=== PATIENT | male | born 1960 ===

== ENCOUNTER 2020-03-07 14:35 | Inpatient (IN) | payer MEDICAID ==
[~2020-03-07] VITALS: Ht 172.7 cm; Wt 72.6 kg
[2020-03-07] MEDS ORDERED: IV NORMAL SALINE 1000 ML BAG IV ONE (15:00)
[2020-03-07] MEDS ORDERED: ATOR20TA PO (15:43)
[2020-03-07] MEDS ORDERED: SPIR25TA6 PO (15:43)
[2020-03-07] MEDS ORDERED: CLOM25CA4 PO (15:43)
[2020-03-07] MEDS ORDERED: LISI10TA5 PO (15:43)
[2020-03-07] MEDS ORDERED: TIOT18CA3 INH (15:43)
[2020-03-07] MEDS ORDERED: TRAZ-257 PO (15:43)
[2020-03-07] MEDS ORDERED: BUME2TAB8 PO (15:43)
[2020-03-07] MEDS ORDERED: INSU100V42 SQ (15:43)
--- NOTE | 2020-03-07 15:45 | NUR ---
patient presents to er by ambulance with chest pain no sob, no nausea vomiting, very weak vital stable will continue to monitor.
[2020-03-07 15:55] LABS: BASOPHILS # (AUTO) 0.1 K/uL (0.0-8.0); BASOPHILS % (AUTO) 0.5 % (0.0-2.0); EOSINOPHILS % (AUTO) 0.1 % (0.0-7.0); HEMATOCRIT 47.4 % (36.7-47.1); HEMOGLOBIN 15.9 g/dL (12.5-16.3); LYMPHOCYTES # (AUTO) 0.5 K/uL (20.0-40.0); LYMPHOCYTES % (AUTO) 3.8 % (20.5-51.5); MEAN CORPUSCULAR HEMOGLOBIN 30.8 uug (23.8-33.4); MEAN CORPUSCULAR HGB CONC 34 g/dL (32.5-36.3); MEAN CORPUSCULAR VOLUME 91.9 fL (73.0-96.2); MONOCYTES # (AUTO) 0.5 K/uL (2.0-10.0); MONOCYTES % (AUTO) 3.7 % (0.0-11.0); NEUTROPHILS # (AUTO) 12.9 K/uL (1.8-8.9); NEUTROPHILS % (AUTO) 91.9 % (38.5-71.5); PLATELET COUNT (AUTO) 172 K/uL (152-348); RED BLOOD CELL COUNT(AUTO) 5.16 MIL/uL (4.06-5.63); WHITE BLOOD COUNT (AUTO) 14.1 K/uL (3.6-10.2)
[2020-03-07 16:19] LABS: BILIRUBIN,DIRECT 0.4 mg/dL (0.0-0.2); BILIRUBIN,TOTAL 1.6 mg/dL (0.2-1.0); CREATININE 1.8 mg/dL (0.6-1.3); POTASSIUM 5.6 mmol/L (3.5-5.1); TOTAL PROTEIN, SERUM 6.4 g/dL (6.4-8.2)
[2020-03-07] MEDS ORDERED: INSULIN REGULAR, HUMAN 300 UNIT/3 ML VIAL SQ ONE (16:30)
[2020-03-07] MEDS ORDERED: FUROSEMIDE 40 MG/4 ML VIAL ONE (16:40)
[2020-03-07] MEDS ORDERED: INSULIN REGULAR, HUMAN 300 UNIT/3 ML VIAL ONE ×2 (16:41→22:46)
[2020-03-07] MEDS ORDERED: FUROSEMIDE 40 MG/4 ML VIAL IV ONE ×2 (16:45→17:00)
--- NOTE | 2020-03-07 16:46 | NUR ---
patient reassess no acute distress, no cp, no sob no nausea vomiting.
[2020-03-07] MEDS ORDERED: ONDANSETRON 4 MG/2 ML VIAL IV PRN (17:00)
[2020-03-07] MEDS ORDERED: DEXTROSE 50% 50 ML DISP.SYRIN IV PRN (17:00)
[2020-03-07] MEDS ORDERED: ACETAMINOPHEN 325 MG TABLET PO PRN (17:00)
[2020-03-07] MEDS ORDERED: HYDROCODONE/APAP 5-325MG TABLET PO PRN (17:00)
[2020-03-07] MEDS ORDERED: Z GUARD REMEDY PASTE 57 GM TUBE TOP PRN (17:00)
[2020-03-07] MEDS ORDERED: MAGNESIUM HYDROXIDE 30 ML LIQUID UDC PO PRN (17:00)
[2020-03-07] MEDS ORDERED: INSULIN REGULAR, HUMAN 300 UNIT/3 ML VIAL SQ PRN (17:00)
[2020-03-07] MEDS ORDERED: NITROGLYCERIN 0.4 MG/TAB BOTTLE SL PRN (17:15)
--- NOTE | 2020-03-07 19:16 | NUR ---
no tele bed available, patient denies cp, no sob, report endorsed to 7pm shift RN.
[2020-03-07] MEDS: BLOOD SUGAR DIAGNOSTIC 1 EACH STRIP VI SCH (21:00)
[2020-03-07] MEDS ORDERED: ATORVASTATIN 20 MG TABLET PO SCH (21:00)
[2020-03-07] MEDS ORDERED: TRAZODONE 100 MG TABLET PO SCH (21:00)
[2020-03-07] MEDS ORDERED: CEFTRIAXONE 1 G in IV DEXTROSE 5% 50 ML IV SCH (21:51)
[2020-03-07] MEDS: INSULIN REGULAR, HUMAN 300 UNITS/3 ML VIAL SQ PRN (23:22)
--- NOTE | 2020-03-08 00:12 | NUR ---
Call made to attending, DR BURGER in regards to low blood pressure. Updated on pt condition. See order history. Pt resting in bed. No acute distress noted.
[2020-03-08] MEDS ORDERED: IV NORMAL SALINE 500 ML IV STA (00:40)
[2020-03-08] MEDS ORDERED: IV NORMAL SALINE 500 ML IV ONE (01:30)
[2020-03-08] MEDS ORDERED: NITROGLYCERIN 0.4 MG/TAB BOTTLE SL PRN (07:12)
--- NOTE | 2020-03-08 07:38 | NUR ---
Dr Nick at the bedside for MSE.
--- NOTE | 2020-03-08 07:55 | NUR ---
Paged [facility], Dr Rivers.Awaiting call back.
[2020-03-08 07:56] LABS: BASOPHILS % (AUTO) 0.5 % (0.0-2.0); EOSINOPHILS % (AUTO) 0.3 % (0.0-7.0); HEMATOCRIT 42.5 % (36.7-47.1); HEMOGLOBIN 14.7 g/dL (12.5-16.3); LYMPHOCYTES # (AUTO) 0.8 K/uL (20.0-40.0); LYMPHOCYTES % (AUTO) 9.1 % (20.5-51.5); MEAN CORPUSCULAR HEMOGLOBIN 32.3 uug (23.8-33.4); MEAN CORPUSCULAR HGB CONC 35 g/dL (32.5-36.3); MEAN CORPUSCULAR VOLUME 93.2 fL (73.0-96.2); MONOCYTES # (AUTO) 0.4 K/uL (2.0-10.0); MONOCYTES % (AUTO) 4.9 % (0.0-11.0); NEUTROPHILS # (AUTO) 7.2 K/uL (1.8-8.9); NEUTROPHILS % (AUTO) 85.2 % (38.5-71.5); PLATELET COUNT (AUTO) 126 K/uL (152-348); RED BLOOD CELL COUNT(AUTO) 4.56 MIL/uL (4.06-5.63); WHITE BLOOD COUNT (AUTO) 8.5 K/uL (3.6-10.2)
[2020-03-08] MEDS: BLOOD SUGAR DIAGNOSTIC 1 EACH STRIP VI SCH ×2 (07:58→11:42)
[2020-03-08] MEDS: INSULIN REGULAR, HUMAN 300 UNITS/3 ML VIAL SQ PRN (08:03)
[2020-03-08 08:32] LABS: CREATININE 2.3 mg/dL (0.6-1.3); PHOSPHOROUS 4.9 mg/dL (2.5-4.9); POTASSIUM 4.9 mmol/L (3.5-5.1); TOTAL PROTEIN, SERUM 6.2 g/dL (6.4-8.2)
--- NOTE | 2020-03-08 08:35 | NUR ---
Spoke to NADEEM Guillermo.Pt is still in Er Due to no bed availability. Pt will be seen by Nadeem Guillermo prior to discharge.
--- NOTE | 2020-03-08 08:50 | NUR ---
Mellisa mackenzie in ED - 03/08/20 at 0933 by NINA Arnulfo cristina pt.
[2020-03-08] MEDS ORDERED: LISINOPRIL 10 MG TABLET PO SCH ×2 (09:00)
[2020-03-08] MEDS ORDERED: ASPIRIN 81 MG TAB.CHEW PO ONE (09:00)
[2020-03-08] MEDS ORDERED: ASPIRIN 81 MG TAB.CHEW ONE (09:27)
[2020-03-08] MEDS ORDERED: HYDROMORPHONE 1 MG/1 ML DISP.SYRIN ONE (09:48)
[2020-03-08] MEDS ORDERED: ONDANSETRON 4 MG/2 ML VIAL ONE (09:48)
[2020-03-08 11:56] LABS: MAGNESIUM 1.9 mg/dL (1.8-2.4)
--- NOTE | 2020-03-08 13:55 | NUR ---
PT states Kalyani Guillermo spoke to him, so he is discharged home. Awaiting pt to be picked up by sister Vivian.
[2020-03-08 14:22] VITALS: BP 122/67
--- NOTE | 2020-03-08 14:23 | NUR ---
Patient discharged to home in stable condition. Patient verbalizes understanding of instructions given by [employer]. Stressed follow up or return to ER for worsening s/s. Patient left ER with a steady gait.
[2020-03-10] MEDS ORDERED: ACETAMINOPHEN 650 MG SUPP.RECT RC ONE (10:30)
== END 2020-03-08 14:23 | disposition home or self-care (01) | DRG 139 ==
LOC: ER 14:35 → TRANSITION 20:58
PROVIDERS: ADMIT Nurse Practitioner Acute Care; ATTEND Nurse Practitioner Acute Care
DX: J15.9 Unspecified bacterial pneumonia (principal); I11.0 Hypertensive heart disease with heart failure; N17.0 Acute kidney failure with tubular necrosis; E11.65 Type 2 diabetes mellitus with hyperglycemia; D63.8 Anemia in other chronic diseases classified elsewhere; E78.5 Hyperlipidemia, unspecified; E87.1 Hypo-osmolality and hyponatremia; E87.5 Hyperkalemia; F17.200 Nicotine dependence, unspecified, uncomplicated; Z91.19 Patient's noncompliance with other medical treatment and regimen; D72.829 Elevated white blood cell count, unspecified; I42.7 Cardiomyopathy due to drug and external agent; I25.5 Ischemic cardiomyopathy; I50.21 Acute systolic (congestive) heart failure; F15.10 Other stimulant abuse, uncomplicated; Z79.4 Long term (current) use of insulin
CPT/HCPCS: 36415; 70030-TC; 71045; 83735; 84100; 85025; 85730; 93005; G0378; J1170; J1815; J1940; J2405; J7030